=== PATIENT | female | born 1955 | race Caucasian/White ===

== ENCOUNTER 2022-02-20 14:46 | Inpatient (IN) | payer OTHER, BC ==
[~2022-02-20] VITALS: Ht 160 cm; Wt 72.1 kg
--- NOTE | 2022-02-20 14:50 | NUR ---
Patient BIBA to bed 3 at this time.
[2022-02-20 14:56] VITALS: BP 119/76
[2022-02-20] MEDS ORDERED: NACL 0.9% 1,000 ML IV ONE ×2 (15:05→17:35)
[2022-02-20] MEDS ORDERED: ONDANSETRON 4 MG/2 ML VIAL IVP ONE (15:05)
[2022-02-20] MEDS ORDERED: KETOROLAC 15 MG/ML VIAL IVP ONE (15:05)
--- NOTE | 2022-02-20 15:15 | NUR ---
ED MD AT BEDSIDE
[2022-02-20 16:20] LABS: BASOPHILS % (AUTO) 0.4 % (0.0-2.0); EOSINOPHILS # (AUTO) 0.1 K/uL (0-0.4); EOSINOPHILS % (AUTO) 1.8 % (0.0-4.0); HEMATOCRIT 36.6 % (36-48); HEMOGLOBIN 12.7 g/dL (12.0-16.0); LYMPHOCYTES # (AUTO) 0.8 K/uL (2.5-16.5); LYMPHOCYTES % (AUTO) 18.6 % (20.5-51.1); MEAN CORPUSCULAR HEMOGLOBIN 34 pg (27-31); MEAN CORPUSCULAR HGB CONC 35 g/dL (33-37); MEAN CORPUSCULAR VOLUME 97.4 fL (80-94); MONOCYTES # (AUTO) 0.6 K/uL (0.8-1.0); MONOCYTES % (AUTO) 12.7 % (1.7-9.3); NEUTROPHILS # (AUTO) 2.9 K/uL (1.8-7.7); NEUTROPHILS % (AUTO) 66.5 % (42.2-75.2); PLATELET COUNT (AUTO) 165 K/uL (140-450); RED BLOOD CELL COUNT(AUTO) 3.76 MIL/uL (4.20-5.40); RED CELL DISTRIBUTION WIDTH 13.5 % (11.6-13.7); WHITE BLOOD COUNT (AUTO) 4.4 K/uL (4.8-10.8)
[2022-02-20 16:30] LABS: ANION GAP 14.5 (8-16); ASPARTATE AMINOTRANSFERASE 40 U/L (15-37); CARBON DIOXIDE 26.9 mmol/L (21-32); CHLORIDE 94 mmol/L (98-107); CREATININE 0.8 mg/dL (0.6-1.3); GFR ARICAN-AMERICAN 92 mL/min (>90); GLUCOSE 119 mg/dL (74-106); LIPASE 187 U/L (73-393); SODIUM SERUM 133 mmol/L (136-145); TOTAL BILIRUBIN 0.7 mg/dL (0.0-1.0); UREA NITROGEN, BLOOD 9 mg/dL (7-18)
[2022-02-20 16:34] LABS: POTASSIUM 2.4 mmol/L (3.5-5.1)
[2022-02-20] MEDS ORDERED: KCL 20 MEQ/WATER INJ PREMIX 200 ML IV ONE (17:05)
[2022-02-20] MEDS ORDERED: POTASSIUM CHLORIDE 10 MEQ TABER PO ONE (17:05)
[2022-02-20] MEDS ORDERED: LOVA40TA4 PO (17:54)
[2022-02-20] MEDS ORDERED: VENL37.55 PO (17:54)
[2022-02-20] MEDS ORDERED: SYN.05 PO (17:54)
--- NOTE | 2022-02-20 19:18 | NUR ---
Pt report recived from [facility] at this time.
--- NOTE | 2022-02-20 19:22 | NUR ---
Evaluated patient at bedside vitals taken 103 bp 19 rr 98% o2 106/63 bp. pt resting in bed, bed in lowest position, 1 side rail up. pt denies any dizziness, pt reports she is hungry, offered crackers. Addendum: 02/20/22 at 2303 by [email or web address] PT HAS NS BOLUS RUNNING STARTED BY AM SHIFT UNSURE START TIME. 200 ML INFUSED
--- NOTE | 2022-02-20 20:19 | NUR ---
Patient will be admitted to care of DR LARIOS. Admited to TELE. Will go to [id number]. Belongings list completed. Report to KATERIN ROSALES.
[2022-02-20 20:28] VITALS: BP 129/77
[2022-02-20 21:09] LABS: ANION GAP 13.3 (8-16); CREATININE 0.8 mg/dL (0.6-1.3); POTASSIUM 3.3 mmol/L (3.5-5.1)
[2022-02-20] MEDS ORDERED: guaiFENesin DM 200/20 MG-10 ML 10 ML UDC PO PRN (22:00)
[2022-02-20] MEDS ORDERED: ZOLPIDEM 5 MG TAB PO PRN (22:00)
[2022-02-20] MEDS ORDERED: HYDROcodone/APAP 7.5/325 MG 1 TAB PO PRN (22:00)
[2022-02-20] MEDS ORDERED: DOCUSATE SODIUM 100 MG GELCAP PO PRN (22:00)
[2022-02-20] MEDS ORDERED: ONDANSETRON 4 MG/2 ML VIAL IM/IVP PRN (22:00)
[2022-02-20] MEDS ORDERED: ACETAMINOPHEN 325 MG TAB PO PRN (22:00)
[2022-02-20] MEDS ORDERED: POTASSIUM CHLORIDE 10 MEQ TABER PO SCH (22:00)
[2022-02-20 23:14] LABS: PROTHROMBIN TIME 9.9 secs (10.8-13.4)
[2022-02-20 23:30] LABS: CHOL/HDL RATIO 3.7 (1-4.5); FREE T4 (FREE THYROXINE) 1.07 ng/dL (0.76-1.46); MAGNESIUM 2.2 mg/dL (1.8-2.4); PHOSPHORUS 3.7 mg/dL (2.5-4.9); THYROID STIMULATING HORMONE 4.42 uIU/mL (0.34-3.74)
[2022-02-21] VITALS: BP 101/56
[2022-02-21] MEDS: NACL 0.9% 1,000 ML IV SCH ×2 (00:53→14:40)
[2022-02-21 04:00] VITALS: BP 118/62
[2022-02-21 05:57] LABS: BASOPHILS % (AUTO) 0.5 % (0.0-2.0); EOSINOPHILS # (AUTO) 0.1 K/uL (0-0.4); EOSINOPHILS % (AUTO) 3.6 % (0.0-4.0); HEMATOCRIT 34.5 % (36-48); HEMOGLOBIN 11.7 g/dL (12.0-16.0); LYMPHOCYTES # (AUTO) 1.3 K/uL (2.5-16.5); LYMPHOCYTES % (AUTO) 34.8 % (20.5-51.1); MEAN CORPUSCULAR HEMOGLOBIN 33 pg (27-31); MEAN CORPUSCULAR HGB CONC 34 g/dL (33-37); MEAN CORPUSCULAR VOLUME 98.8 fL (80-94); MONOCYTES # (AUTO) 0.6 K/uL (0.8-1.0); MONOCYTES % (AUTO) 16.2 % (1.7-9.3); NEUTROPHILS # (AUTO) 1.7 K/uL (1.8-7.7); NEUTROPHILS % (AUTO) 44.9 % (42.2-75.2); PLATELET COUNT (AUTO) 157 K/uL (140-450); RED BLOOD CELL COUNT(AUTO) 3.49 MIL/uL (4.20-5.40); RED CELL DISTRIBUTION WIDTH 13.8 % (11.6-13.7); WHITE BLOOD COUNT (AUTO) 3.7 K/uL (4.8-10.8)
[2022-02-21] MEDS: LEVOTHYROXINE 0.05 MG TAB PO SCH (06:10)
[2022-02-21 07:35] LABS: ANION GAP 12.7 (8-16); CARBON DIOXIDE 25.4 mmol/L (21-32); CREATININE 0.7 mg/dL (0.6-1.3); POTASSIUM 3.1 mmol/L (3.5-5.1)
[2022-02-21 08:00] VITALS: BP 128/74
--- NOTE | 2022-02-21 08:00 | NUR ---
RECEIVED ENDORSEMENT FROM PM SHIFT NURSE W/ PATIENT IN STABLE CONDITION IN BED. PIV LAC 20G W/ NS RUNNING 60ML/HR
[2022-02-21] MEDS ORDERED: NON-FORMULARY ITEM (Lovastatin 40 MG) PO SCH (09:00)
--- NOTE | 2022-02-21 09:07 | NUR ---
PATIENT HAS BEEN SCREENED AND CATEGORIZED HIGH NUTRITION RISK. PATIENT WILL BE SEEN WITHIN 1-2 DAYS OF ADMISSION. / HARSHAL FIS[address]
[2022-02-21] MEDS: PANTOPRAZOLE 40 MG TABEC PO SCH (10:38)
[2022-02-21] MEDS: VENLAFAXINE XR 75 MG CAPER PO SCH (10:38)
[2022-02-21] MEDS: POTASSIUM CHLORIDE 10 MEQ TABER PO PRN (10:39)
--- NOTE | 2022-02-21 10:41 | NUR ---
P.T. NOTES P.T. EVAL COMPLETED; REFER TO EVAL FOR DETAILS.
[2022-02-21 12:00] VITALS: BP 156/83
--- NOTE | 2022-02-21 12:15 | NUR ---
02/21/22 RD INITIAL ASSESSMENT COMPLETED PLEASE REFER TO NUTRITION ASSESSMENT UNDER CARE ACTIVITY FOR ESTIMATED NUTRITIONAL NEEDS. 1. CONTINUE REGULAR VEGETARIAN DIET TOLERATED 2. PROVIDED NUTRITION EDUCATION HANDOUTS FOR HEALTHY VEGETARIAN NUTRITION AND DIARRHEA 3. RD TO FOLLOW-UP 7 DAYS, LOW RISK HARSHAL FISCHER RD
--- NOTE | 2022-02-21 15:54 | NUR ---
DC PLANNING SW MET WITH PATIENT AT BEDSIDE FOR THE PURPOSE OF DISCUSSING AND GATHERING COLLATERAL INFORMATION. PATIENT REPORTS LIVING ALONE IN A TWO-STORY TOWNHOUSE. PATIENT REPORTS EMERGENCY CONTACT AND MEDICAL DECISION MAKER FARHAT BIRCH (SON) [phone]. SW INQUIRED ON A.D; PATIENT REPORTS THAT SHE HAS A POWER OF BIO MEDICAL TECHNICIAN IN PLACE WITH HER SON. PATIENT REPORTS BEING AMBULATORY/INDEPENDENT AND NO DME. PATIENT REPORTS BEING INCONSISTENT WITH MEETING PCP, PATIENT REPORTS LAST VISIT TO PCP IN EARLY 2020. PATIENT REPORTS RECEIVING MEDICAL CARE AT [facility]. SW SPOKE WITH PATIENT ABOUT THE IMPORTANCE OF FOLLOW UP CARE. SW ENCOURAGED PATIENT TO FOLLOW, PATIENT WAS RECEPTIVE AND REPORTED THAT SHE WOULD MAKE CALL FOR FOLLOW UP ONCE READY FOR DISCHARGE. PATIENT REPORTS BEING COMPLIANT WITH MEDICATIONS AND DENIES BARRIERS ACQUIRING MEDICATION. PATIENT RECEIVES MEDICATIONS FROM [facility] OR [facility] IN THE [facility]. PATIENT REPORTS ADEQUATE FRIEND AND FAMILY SUPPORT AND REPORTED THAT FRIENDS WOULD AID IN HER IF NEEDED. PATIENTS PLAN IS TO DISCHARGE HOME, PATIENT REPORTS THAT SHE WOULD ARRANGE TRANSPORTATION FROM HOSPITAL WITH FRIENDS. SW INQUIRED ON RESOURCES NEEDED; CLIENT DECLINED AT THIS TIME.
[2022-02-21 16:00] VITALS: BP 114/79
--- NOTE | 2022-02-21 19:34 | NUR ---
ENDORSE PT TO PM SHIFT NURSE W/ STABLE CONDITION, PT REST IN BED. PIV LAC 20G W/ NS RUNNING 60ML/HR
[2022-02-21 20:00] VITALS: BP 113/62
--- NOTE | 2022-02-21 20:00 | NUR ---
GET REPORT FROM MORNING NURSE, PATIENT IS SITTING ON BED , PATIENT IS ALERT AND ORIENTED X4, VITAL SIGN IS WITHIN THE NORMAL RANGE,NO ANY COMPLAIN OF PAIN OR SOB NOTED ,ALL SCHEDULE MEDS ARE GIVEN PER DR ORDER, CALL LIGHT IS WITHIN THE REACH ,WILL CONTINUE TO MONITOR.
[2022-02-21] MEDS ORDERED: SIMVASTATIN 20 MG TAB PO SCH (21:00)
--- NOTE | 2022-02-21 22:30 | NUR ---
PATIENT IS COMPLAINING OF PAIN OR IV SITE, CHECKED IV SITE AND FIND INFILTRATED, REMOVED OLD IV AND INSERTED NEW IV AT LFA 24 GAUGE, PATENT AND INFECT.WILL CONTINUE TO MONITOR.
[2022-02-22] VITALS: BP 128/87
--- NOTE | 2022-02-22 | NUR ---
PATIENT IS LYING ON BED, NO ANY COMPLAIN OF PAIN OR SOB NOTED AT THIS TIME, VITAL SIGN IS WITHIN THE RANGE , ALL DUE MEDS ARE GIVEN PER DR ORDER, CALL LIGHT IS WITHIN THE REACH ,WILL CONTINUE TO MONITOR.
[2022-02-22 00:51] LABS: APPEARANCE,URINE CLEAR (CLEAR); BILIRUBIN,URINE NEGATIVE (NEGATIVE); BLOOD, URINE NEGATIVE (NEGATIVE); COLOR,URINE YELLOW (YELLOW); LEUKOCYTE ESTERASE ,URINE NEGATIVE (NEGATIVE); NITRITE, URINE NEGATIVE (NEGATIVE); UGLUCOSE NEGATIVE (NEGATIVE)
[2022-02-22 01:07] LABS: BARBITURATE, URINE NEGATIVE ng/ml (NEG <=200); BENZODIAZEPINE, URINE NEGATIVE ng/mL (NEG <=200); CANNABINOID, URINE NEGATIVE ng/mL (NEG <=50); COCAINE, URINE NEGATIVE ng/mL (NEG <=300); OPIATE, URINE NEGATIVE ng/mL (NEG <=2000); PHENCYCLIDINE SCREEN,URINE NEGATIVE ng/mL (NEG <=25)
[2022-02-22 04:00] VITALS: BP 133/76
[2022-02-22 05:19] LABS: BASOPHILS % (AUTO) 0.4 % (0.0-2.0); EOSINOPHILS # (AUTO) 0.2 K/uL (0-0.4); HEMATOCRIT 35.2 % (36-48); HEMOGLOBIN 11.9 g/dL (12.0-16.0); LYMPHOCYTES # (AUTO) 1.4 K/uL (2.5-16.5); LYMPHOCYTES % (AUTO) 29.1 % (20.5-51.1); MEAN CORPUSCULAR HEMOGLOBIN 34 pg (27-31); MEAN CORPUSCULAR HGB CONC 34 g/dL (33-37); MEAN CORPUSCULAR VOLUME 99.5 fL (80-94); MONOCYTES # (AUTO) 0.8 K/uL (0.8-1.0); MONOCYTES % (AUTO) 16.7 % (1.7-9.3); NEUTROPHILS # (AUTO) 2.3 K/uL (1.8-7.7); NEUTROPHILS % (AUTO) 48.8 % (42.2-75.2); PLATELET COUNT (AUTO) 166 K/uL (140-450); RED BLOOD CELL COUNT(AUTO) 3.54 MIL/uL (4.20-5.40); RED CELL DISTRIBUTION WIDTH 13.5 % (11.6-13.7); WHITE BLOOD COUNT (AUTO) 4.7 K/uL (4.8-10.8)
[2022-02-22 05:50] LABS: ANION GAP 9.2 (8-16); CARBON DIOXIDE 29.1 mmol/L (21-32); CREATININE 0.6 mg/dL (0.6-1.3); POTASSIUM 3.3 mmol/L (3.5-5.1)
[2022-02-22] MEDS: LEVOTHYROXINE 0.05 MG TAB PO SCH (06:19)
[2022-02-22] MEDS: NACL 0.9% 1,000 ML IV SCH (07:02)
--- NOTE | 2022-02-22 07:04 | NUR ---
GIVE REPORT TO MORNING NURSE SIGRID, PATIENT IS STABLE.
--- NOTE | 2022-02-22 07:45 | NUR ---
RECEIVE ENDORSEMENT FROM PM SHIFT NURSE W/ PATIENT IN STABLE CONDITION, EBONY L. FOREARM 24G PATENT, IV NS INFUSING, POTASSIUM 3.3 THIS MORNING. WILL CONTINUE TO MONITOR
[2022-02-22 08:00] VITALS: BP 125/79
[2022-02-22] MEDS: POTASSIUM CHLORIDE 10 MEQ TABER PO PRN (08:56)
[2022-02-22] MEDS: VENLAFAXINE XR 75 MG CAPER PO SCH (08:57)
[2022-02-22] MEDS: PANTOPRAZOLE 40 MG TABEC PO SCH (08:58)
--- NOTE | 2022-02-22 08:58 | NUR ---
DC PLANNING: THE PATIENT ADMITTED FROM HOME WITH C/O DIZZINESS WITH LOSS OF CONSCIOUSNESS. RECENT H/O DIARRHEA AND DECREASED PO INTAKE. K+ 2.4, GLUCOSE 120, GIVEN NS BOLUS AND K+ RIDER IN ED, K+ CAME UP TO 3.3, BUT DECREASED TO 3.1 YESTERDAY. LIPIDS ELEVATED, PATIENT ADMITTED ON IVF'S AND K DUR. CM SPOKE WITH THE PATIENT AT BEDSIDE AND CONFIRMED HER ADDRESS AND PHONE NUMBER. THE PATIENT LIVES ALONE IN A 2 STORY TOWNHOUSE AND IS RETIRED AND . SHE IS INDEPENDENT IN ALL ACTIVITIES AND HAS NO DME OR H/O HOME HEALTH. 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 STATES THAT HER SON LIVES LOCALLY AND IS SUPPORTIVE AND HELPS WITH ANY NEEDS SHE MIGHT HAVE. SHE GOES TO [place] FOR HER ROUTINE MEDICAL NEEDS HE PMD IS BASED THERE. DC PLAN IS TO RETURN HOME WHEN CLINICALLY STABLE, NO DC NEEDS IDENTIFIED. CM WILL FOLLOW.
[2022-02-22 09:06] LABS: T4 (THYROXINE) 8.1 ug/dL (4.5-12.0)
[2022-02-22] MEDS ORDERED: POTA10TA70 PO (11:06)
[2022-02-22 11:22] VITALS: BP 125/79
--- NOTE | 2022-02-22 12:10 | NUR ---
D/C PATIENT IN STABLE CONDITION, IV & ARM BAND REMOVED, CONSENT SIGNED
== END 2022-02-22 12:40 | disposition home or self-care (01) | DRG 640 ==
LOC: MED 14:46 → MTU 18:05
PROVIDERS: ADMIT Family Medicine; ATTEND Family Medicine
DX: E86.0 Dehydration (principal); G93.41 Metabolic encephalopathy; E87.1 Hypo-osmolality and hyponatremia; E87.6 Hypokalemia; K52.9 Noninfective gastroenteritis and colitis, unspecified; E78.2 Mixed hyperlipidemia; Z20.822 Contact with and (suspected) exposure to COVID-19; E03.9 Hypothyroidism, unspecified; R74.01 Elevation of levels of liver transaminase levels; F17.210 Nicotine dependence, cigarettes, uncomplicated
CPT/HCPCS: 36415; 70450; 71045; 80048; 80053; 80305; 81003; 82150; 83036; 83690; 83735; 83880; 84100; 84436; 84439; 84443; 84479; 84484; 85025; 85610; 85730; 93005; 96361; 96374; 96375; 97163-GP; 99285; J1885; J2405; J3480; Q0092